=== PATIENT | male | born 1960 | race Caucasian/White ===

== ENCOUNTER 2024-05-14 14:26 | Outpatient (CLI) | payer OTHER, SELFPAY ==
[2024-05-14 15:15] VITALS: PULSE 104; PULSE 97
[2024-05-14] MEDS: ALBUTEROL 0.083% 2.5 MG/3 ML NEB IH (15:15)
--- NOTE | 2024-05-14 15:43 | XR_ITS ---
PROCEDURE INFORMATION: Exam: XR Chest Exam date and time: 05/14/2024 3:50 PM Age: 64 years old Clinical indication: Cough; Additional info: Chronic cough TECHNIQUE: Imaging protocol: Radiologic exam of the chest. Views: 2 views. COMPARISON: No relevant prior studies available. FINDINGS: Lungs: Unremarkable. No consolidation. Pleural spaces: Unremarkable. No pleural effusion. No pneumothorax. Heart/Mediastinum: Unremarkable. No cardiomegaly. Bones/joints: Unremarkable. IMPRESSION: No acute findings.
== END 2024-05-14 23:59 | disposition home or self-care (01) ==
PROVIDERS: PCP Chiropractor; Visit Provider Chiropractor
DX: R05.3 Chronic cough (principal)
CPT/HCPCS: 71046; 94060; 94640; J7613